=== PATIENT | female | born 1975 | race Caucasian/White ===

== ENCOUNTER 2017-08-18 07:44 | Emergency (ER) | payer OTHER ==
[2017-08-18] MEDS ORDERED: IPRATROPIUM/ALBUTEROL 3 ML NEB INH STA (08:20)
[2017-08-18] MEDS ORDERED: DEXAMETHASONE 10 MG/ML VIAL PO STA (08:20)
--- NOTE | 2017-08-18 08:23 | ED Physician Documentation ---
PD HPI URI - Stated complaint Stated Complaint: CONGESTED/BILAT EAR PX - Chief complaint Chief Complaint: General - History obtained from History obtained from: Patient - History of Present Illness Timing - onset: How many days ago (5) Timing duration: Days (5) Timing details: Gradual onset, Still present Associated symptoms: Ear pain, Nasal congestion, Rhinorrhea, Dry cough, Chest pain, Dyspnea. No: Fever Contributing factors: Sick contact Improves by: Rest, Medication Worsened by: Activity Similar symptoms before: Diagnosis (URI) Recently seen: Not recently seen - Additional information Additional information: 42-year-old female with no specific past medical history has developed a cough and congestion over the past 5 days and she is now developed some shortness of breath and chest pressure. She does feel like she is having some difficulty getting a full deep breath. She has pain and fullness in both ears and nasal congestion. Review of Systems Constitutional: denies: Fever Eyes: denies: Decreased vision Ears: reports: Loss of hearing, Ear pain Nose: reports: Rhinorrhea / runny nose, Congestion Throat: denies: Sore throat Cardiac: reports: Chest pain / pressure. 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 - Present Medications Home Medications: Ambulatory Orders Medication Instructions Recorded Confirmed Albuterol Sulf [Ventolin Hfa 1 - 2 puffs INH Q4HR PRN #1 inhaler 08/18/17 Inhaler] Azithromycin [Zithromax] 250 mg PO DAILY #6 tablet 08/18/17 - Allergies Allergies/Adverse Reactions: Allergies Allergy/AdvReac Type Severity Reaction Status Date / Time sulfamethoxazole Allergy Edema Verified 02/22/15 07:01 [From ] trimethoprim [From ] Allergy Edema Verified 02/22/15 07:01 - Social History Does the pt smoke?: No Smoking Status: Never smoker Does the pt drink ETOH?: No Does the pt have substance abuse?: No - Immunizations Immunizations are current?: Yes PD ED PE NORMAL - Vitals Vital signs reviewed: Yes (Hypertensive mild) - General General: No acute distress, Well developed/nourished - HEENT HEENT: Atraumatic, PERRL, EOMI, Other (Both TMs are inflamed the left is much more inflamed than the right the right has a thickened tympanic membrane.) - Neck Neck: Supple, no meningeal sign, No bony TTP - Cardiac Cardiac: RRR, No murmur - Respiratory Respiratory: No respiratory distress, Other (Diminished breath sounds bilaterally without wheeze) - Back Back: No CVA TTP, No spinal TTP - Derm Derm: Normal color, Warm and dry, No rash - Extremities Extremities: No deformity, No edema - Neuro Neuro: No motor deficit, No sensory deficit - Psych Psych: Normal mood, Normal affect Results - Vitals Vitals: Vital Signs - 24 hr 08/18/17 08/18/17 08/18/17 07:49 08:31 08:58 Temperature 36.4 C L 36.9 C Heart Rate 85 94 84 Respiratory 18 14 18 Rate Blood Pressure 119/83 H 103/62 O2 Saturation 98 100 Oxygen O2 Source Room air - EKG (time done) 0755 Rate: Rate (enter#) (75) Intervals: Other (borderline short NH) Ischemia: ST depression (minimal <.03mV) Compare to prior EKG: Old EKG unavailable Computer interpretation: Agree with computer - Rads (name of study) 2 view chest Radiology: Prelim report reviewed (Impression: Normal two-view chest radiography.), EMP read indepedently, See rad report PD MEDICAL DECISION MAKING - ED course Complexity details: reviewed results, re-evaluated patient, considered differential, d/w patient ED course: 6-year-old female with URI and wheezing has developed some chest pressure with this she is administered a DuoNeb treatment with improvement she is taught how to use an albuterol inhaler she does have otitis on examination. She is given 10 mg of dexamethasone orally and we will put her on some antibiotic and an inhaler. Departure - Departure Disposition: 01 Home, Self Care Clinical Impression: Otitis media Qualifiers: Otitis media type: suppurative Chronicity: acute Laterality: bilateral Recurrence: not specified as recurrent Spontaneous tympanic membrane rupture: without spontaneous rupture Qualified Code(s): H66.003 - Acute suppurative otitis media without spontaneous rupture of ear drum, bilateral Reactive airway disease Qualifiers: Asthma severity: mild Asthma persistence: intermittent Asthma complication type : with acute exacerbation Qualified Code(s): J45.21 - Mild intermittent asthma with (acute) exacerbation Condition: Stable Instructions: ED Otitis Media Acute Adult, ED Reactive Airway Disease Follow-Up: Tiny Catalan MD [Primary Care Provider] - Prescriptions: Albuterol Sulf [Ventolin Hfa Inhaler] 1 - 2 puffs INH Q4HR PRN #1 inhaler PRN Reason: Shortness Of Air/Wheezing Azithromycin [Zithromax] 250 mg PO DAILY #6 tablet
[2017-08-18] MEDS ORDERED: IPRATROPIUM/ALBUTEROL 3 ML NEB INH ONE (08:32)
[2017-08-18] MEDS ORDERED: CHERRY SYRUP 10 ML UDC PO ONE (08:37)
[2017-08-18] MEDS ORDERED: DEXAMETHASONE 10 MG/ML VIAL ONE (08:37)
[2017-08-18 08:59] VITALS: BP 103/62
--- NOTE | 2017-08-18 09:05 | XRAY Preliminary Report ---
Exam: XR CHEST 2 VIEW PA/LAT IMPRESSION: Normal 2-view chest radiography. [facility] SITE ID: [id number]
--- NOTE | 2017-08-18 09:08 | XRAY Report ---
EXAM: CHEST RADIOGRAPHY EXAM DATE: 08/18/2017 08:54 AM. CLINICAL HISTORY: Dyspnea/chest pain. COMPARISON: None. TECHNIQUE: 2 views. FINDINGS: Lungs/Pleura: No focal opacities evident. No pleural effusion. No pneumothorax. Normal volumes. Mediastinum: Heart and mediastinal contours are unremarkable. Other: None. IMPRESSION: Normal 2-view chest radiography. [facility] Referring Provider Line: [phone] SITE ID: [id number]
== END 2017-08-18 09:24 | disposition home or self-care (01) ==
LOC: ED 07:44
DX: H66.003 Acute suppurative otitis media without spontaneous rupture of ear drum, bilateral (principal); J45.21 Mild intermittent asthma with (acute) exacerbation
CPT/HCPCS: 71020; 93005; 94640; 94664; 99283; A9270; J7620

== ENCOUNTER 2018-11-30 07:47 | Emergency (ER) | payer OTHER ==
--- NOTE | 2018-11-30 07:57 | ED Physician Documentation ---
PD HPI URI - Stated complaint Stated Complaint: FEVER/CHILLS - History obtained from History obtained from: Patient - History of Present Illness Timing - onset: Yesterday Timing duration: Days (2) Timing details: Abrupt onset, Still present Associated symptoms: Fever, Chills, Ear pain, Nasal congestion, Sinus pain, Dry cough Contributing factors: No: Sick contact, COPD / asthma Improves by: Medication (theraflu) Similar symptoms before: Has not had sx before Recently seen: Not recently seen (tried to get into [facility] but they referred her to the ER.) Review of Systems Constitutional: reports: Fever, Chills, Myalgias Ears: reports: Ear pain. denies: Loss of hearing, Drainage/discharge Nose: reports: Congestion, Sinus pressure / pain Throat: denies: Sore throat Cardiac: denies: Chest pain / pressure Respiratory: reports: Cough. 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 - Present Medications Home Medications: Ambulatory Orders Medication Instructions Recorded Confirmed Cetirizine [ZyrTEC] 10 mg PO DAILY #15 tablet 11/30/18 Dexamethasone [Decadron] 4 mg PO DAILY #5 tablet 11/30/18 - Allergies Allergies/Adverse Reactions: Allergies Allergy/AdvReac Type Severity Reaction Status Date / Time sulfamethoxazole Allergy Edema Verified 11/30/18 07:58 [From ] trimethoprim [From ] Allergy Edema Verified 11/30/18 07:58 - Social History Does the pt smoke?: No Smoking Status: Never smoker Does the pt drink ETOH?: No Does the pt have substance abuse?: No - Immunizations Immunizations are current?: Yes PD ED PE NORMAL - Vitals Vital signs reviewed: Yes - General General: Alert and oriented X 3, No acute distress, Well developed/nourished - HEENT HEENT: Ears normal, Pharynx benign - Neck Neck: Supple, no meningeal sign, No adenopathy - Cardiac Cardiac: RRR (mild tachycardic), No murmur - Respiratory Respiratory: Clear bilaterally - Abdomen Abdomen: Soft, Non tender - Derm Derm: Normal color, Warm and dry, No rash - Neuro Neuro: Alert and oriented X 3, No motor deficit, Normal speech Results - Vitals Vitals: Vital Signs - 24 hr 11/30/18 07:51 Temperature 36.6 C Heart Rate 112 H Respiratory 20 Rate Blood Pressure 115/89 H O2 Saturation 94 Oxygen O2 Source Room air Departure - Departure Disposition: 01 Home, Self Care Clinical Impression: Upper respiratory infection Qualifiers: URI type: unspecified URI Qualified Code(s): J06.9 - Acute upper respiratory infection, unspecified Condition: Stable Record reviewed to determine appropriate education?: Yes Instructions: ED Upper Resp Infec No Abx Tx Follow-Up: Tiny Catalan MD [Primary Care Provider] - Prescriptions: Cetirizine [ZyrTEC] 10 mg PO DAILY #15 tablet Dexamethasone [Decadron] 4 mg PO DAILY #5 tablet Comments: Drink lots of fluids. [id number] medicines as needed for fevers and cough and congestion. You could use a antihistamine for congestion. You may get some improvement in symptoms with some anti-inflammatories as well. Otherwise just rest today and slowly get better over the next several days to week. Forms: Activity restrictions Discharge Date/Time: 11/30/18 08:23
[2018-11-30 07:58] VITALS: BP 115/89
[2018-11-30] MEDS ORDERED: DEXAMETHASONE 10 MG/ML VIAL PO STA (08:05)
[2018-11-30] MEDS ORDERED: CETIRIZINE 10 MG TABLET PO STA (08:05)
[2018-11-30] MEDS ORDERED: CHERRY SYRUP 10 ML UDC PO ONE (08:17)
== END 2018-11-30 08:23 | disposition home or self-care (01) ==
LOC: ED 07:47
DX: J06.9 Acute upper respiratory infection, unspecified (principal)
CPT/HCPCS: 99283; A9270

== ENCOUNTER 2021-03-24 13:36 | Outpatient (CLI) | payer OTHER ==
--- NOTE | 2021-03-25 12:19 | Mammography Report ---
BILATERAL DIGITAL SCREENING MAMMOGRAM 3D/2D: 03/24/2021 CLINICAL: Routine screening. Comparison is made to exams dated: 03/30/2019 mammogram, 02/02/2018 mammogram, 03/18/2015 mammogram, an d 03/01/2015 ultrasound - [facility]. There are scattered fibroglandular elements in both br easts. No significant masses, calcifications, or other findings are seen in either breast. There has been no significant interval change. IMPRESSION: NEGATIVE There is no mammographic evidence of malignancy. A 1 year screening mammogram is recommended. This exam was interpreted at Station ID: [id number]. NOTE: For mammograms, a report in lay terms will be sent to the patient. Approximately 15% of breast malignancies will not be visualized mammographically. In the management of a palpable breast mass, a negative mammogram must not discourage biopsy of a clinically suspicious lesion. Electronically Signed By: Juan C Clifton M.D. ddp/penrad:03/24/2021 15:01:33 ACR BI-RADS Category 1: Negative 3341F PARENCHYMAL PATTERN: (A) - The breast(s) demonstrate(s) scattered fibroglandular densities. BI-RADS CATEGORY: (1) - 1 RECOMMENDATION: (ANNUAL) - Recommend routine annual screening mammography. [id number] 1 year screening LATERALITY: (B)
== END 2021-03-24 13:37 | disposition home or self-care (01) ==
LOC: DI 13:36
DX: Z12.31 Encounter for screening mammogram for malignant neoplasm of breast (principal)

== ENCOUNTER 2021-05-30 06:20 | Emergency (ER) | payer OTHER ==
[2021-05-30 06:52] LABS: BILIRUBIN,URINE NEGATIVE (NEGATIVE); GLUCOSE, URINE (UA) NEGATIVE (NEGATIVE); KETONES,URINE (UA) NEGATIVE (NEGATIVE); LEUKOCYTE ESTERASE, URINE NEGATIVE (NEGATIVE); NITRITE,URINE NEGATIVE (NEGATIVE); OCCULT BLOOD,URINE TRACE-INTA (NEGATIVE); PROTEIN,URINE NEGATIVE (NEGATIVE); UROBILINOGEN,URINE 0.2 (NORMAL) E.U./dL (NORMAL)
[2021-05-30 06:59] LABS: CLARITY,URINE CLEAR (CLEAR)
[2021-05-30 07:00] LABS: HCG UR QUAL NEGATIVE
[2021-05-30 07:18] LABS: BASOPHILS % (AUTO) 0.5 %; EOSINOPHILS % (AUTO) 0.6 %; HCT - HEMATOCRIT 36.9 % (37.0-47.0); HGB - HEMOGLOBIN 11.8 g/dL (12.0-16.0); LYMPHOCYTES # (AUTO) 1.5 10^3/uL (1.5-3.5); LYMPHOCYTES % (AUTO) 23.5 %; MEAN CORPUSCULAR HEMOGLOBIN 29.8 pg (27.0-31.0); MEAN CORPUSCULAR VOLUME 93.2 fL (81.0-99.0); MEAN PLATELET VOLUME 10.2 fL (7.9-10.8); MONOCYTES # (AUTO) 0.3 10^3/uL (0.0-1.0); MONOCYTES % (AUTO) 5.3 %; NEUTROPHILS # (AUTO) 4.5 10^3/uL (1.5-6.6); NEUTROPHILS % (AUTO) 69.8 %; PLT - PLATELET COUNT 311 10^3/uL (130-450); RED BLOOD COUNT 3.96 10^6/uL (4.20-5.40); WHITE BLOOD COUNT 6.4 x10^3/uL (4.8-10.8)
[2021-05-30 07:32] LABS: ALBUMIN/GLOBULIN RATIO 1.3 (1.0-2.2); BILIRUBIN,TOTAL 0.5 mg/dL (0.2-1.0); CALCIUM 9.1 mg/dL (8.5-10.3); CREATININE 0.8 mg/dL (0.4-1.0); POTASSIUM 3.8 mmol/L (3.5-5.0); TOTAL PROTEIN 7.2 g/dL (6.7-8.2)
--- NOTE | 2021-05-30 07:41 | ED Physician Documentation ---
PD HPI ABD PAIN - Stated complaint Stated Complaint: RT SIDE PX - Chief complaint Chief Complaint: Abd Pain - History obtained from History obtained from: Patient - History of Present Illness Timing - onset: Last night Timing - duration: Days (1) Timing - details: Gradual onset Pain level max: 9 Pain level now: 3 Quality: Sharp, Stabbing Location: RLQ (Right pelvic area) Associated symptoms: No: Fever, Constipation, Melena, Hematochezia, Dysuria, Hematuria, Vaginal bleeding, Vaginal dc Similar symptoms before: Has not had sx before Recently seen: Not recently seen - Additional information Additional information: Patient is a 46-year-old female who presents to the emergency department with right pelvic pain since last night. LMP was 6 days ago. Pain was described as sharp and stabbing, improved currently. No nausea or vomiting. One episode of diarrhea yesterday. No fevers. No chills. Nothing makes it better or worse. 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 - Present Medications Home Medications: Ambulatory Orders Medication Instructions Recorded Confirmed Ibuprofen [Motrin] 800 mg PO Q8H PRN #30 tablet 05/30/21 - Allergies Allergies/Adverse Reactions: Allergies Allergy/AdvReac Type Severity Reaction Status Date / Time sulfamethoxazole Allergy Edema Verified 05/30/21 06:30 [From ] trimethoprim [From ] Allergy Edema Verified 05/30/21 06:30 - Social History Does the pt smoke?: No Smoking Status: Never smoker Does the pt drink ETOH?: No Does the pt have substance abuse?: No - Immunizations Immunizations are current?: Yes - POLST Patient has POLST: No PD ED PE NORMAL - Vitals Vital signs reviewed: Yes - General General: Alert and oriented X 3, No acute distress - HEENT HEENT: Moist mucous membranes - Neck Neck: Supple, no meningeal sign - Cardiac Cardiac: RRR, Strong equal pulses - Respiratory Respiratory: No respiratory distress, Clear bilaterally - Abdomen Abdomen: Soft, Non tender, Non distended - Derm Derm: Warm and dry - Neuro Neuro: Alert and oriented X 3 - Psych Psych: Normal mood, Normal affect Results - Vitals Vitals: Vital Signs - 24 hr 05/30/21 05/30/21 06:28 10:46 Temperature 37.2 C 36.3 C L Heart Rate 79 76 Respiratory 16 16 Rate Blood Pressure 132/75 H 129/88 H O2 Saturation 97 98 Oxygen O2 Source Room air - Labs Labs: Laboratory Tests 05/30/21 05/30/21 05/30/21 06:45 06:45 07:05 WBC 6.4 RBC 3.96 L Hgb 11.8 L Hct 36.9 L MCV 93.2 MCH 29.8 MCHC 32.0 RDW 12.0 Plt Count 311 MPV 10.2 Neut # (Auto) 4.5 Lymph # (Auto) 1.5 [place] # (Auto) 0.3 Eos # (Auto) 0.0 Baso # (Auto) 0.0 Absolute Nucleated RBC 0.00 Nucleated RBC % 0.0 Sodium Potassium Chloride Carbon Dioxide Anion Gap BUN Creatinine Estimated GFR (MDRD) Glucose Calcium Total Bilirubin AST ALT Alkaline Phosphatase Total Protein Albumin Globulin Albumin/Globulin Ratio Lipase Urine Color YELLOW Urine Clarity CLEAR Urine pH 6.0 Ur Specific [place] 1.025 Urine Protein NEGATIVE Urine Glucose (UA) NEGATIVE Urine Ketones NEGATIVE Urine Occult Blood TRACE-INTA Urine Nitrite NEGATIVE Urine Bilirubin NEGATIVE Urine Urobilinogen 0.2 (NORMAL) Ur Leukocyte Esterase NEGATIVE Ur Microscopic Review NOT INDICATED Urine Culture Comments NOT INDICATED Urine HCG, Qual NEGATIVE 05/30/21 07:05 WBC RBC Hgb Hct MCV MCH MCHC RDW Plt Count MPV Neut # (Auto) Lymph # (Auto) [place] # (Auto) Eos # (Auto) Baso # (Auto) Absolute Nucleated RBC Nucleated RBC % Sodium 137 Potassium 3.8 Chloride 104 Carbon Dioxide 22 Anion Gap 11.0 BUN 19 Creatinine 0.8 Estimated GFR (MDRD) 78 L Glucose 121 H Calcium 9.1 Total Bilirubin 0.5 AST 19 ALT 19 Alkaline Phosphatase 60 Total Protein 7.2 Albumin 4.0 Globulin 3.2 Albumin/Globulin Ratio 1.3 Lipase 36 Urine Color Urine Clarity Urine pH Ur Specific [place] Urine Protein Urine Glucose (UA) Urine Ketones Urine Occult Blood Urine Nitrite Urine Bilirubin Urine Urobilinogen Ur Leukocyte Esterase Ur Microscopic Review Urine Culture Comments Urine HCG, Qual - Rads (name of study) Abdomen/pelvis CT Radiology: Final report received, EMP read contemporaneously, See rad report pelvic US Radiology: Final report received, EMP read contemporaneously, See rad report PD MEDICAL DECISION MAKING - ED course Complexity details: reviewed results, re-evaluated patient, considered differential, d/w patient ED course: 46-year-old female with abdominal pain last night and today. No acute findings on CT scan, ultrasound or laboratory testing. Normal urine. No vaginal bleeding or discharge. Pain well controlled here. Abdomen is soft, nontender nondistended on serial exam. Does have a solid mass in the left adnexa, she will follow up with her doctor for a pelvic MRI. Patient counseled regarding signs and symptoms for which I believe and urgent re-evaluation would be necessary. Patient with good understanding of and agreement to plan and is comfortable going home at this time This document was made in part using voice recognition software. While efforts are made to proofread this document, sound alike and grammatical errors may occur. Pelvic US: 1. No signs of ovarian torsion. No acute abnormality is seen in the pelvis. 2. Solid mass in the left adnexa measuring 1.8 cm may represent a pedunculated uterine fibroid versus a left ovarian mass. Pelvic MRI with and without contrast could be obtained for further evaluation. Abdominal CT: 1. No acute process. 2. Normal appendix. Departure - Departure Disposition: 01 Home, Self Care Clinical Impression: Abdominal pain Qualifiers: Abdominal location: unspecified location Qualified Code(s): R10.9 - Unspecified abdominal pain Condition: Good Instructions: ED Abdominal Pain Unkn Cause Follow-Up: your,doctor in 1 week [Other] Prescriptions: Ibuprofen [Motrin] 800 mg PO Q8H PRN #30 tablet PRN Reason: PAIN &/OR FEVER Comments: The cause of your symptoms is unclear today. There are no acute findings on your laboratory testing or ultrasound or CT to explain your symptoms. There is an abnormality in your left ovary. They are recommending that you have a pelvic MRI performed. Your doctor can arrange this. You can use Motrin as needed for pain. Return if you worsen. Pelvic US: 1. No signs of ovarian torsion. No acute abnormality is seen in the pelvis. 2. Solid mass in the left adnexa measuring 1.8 cm may represent a pedunculated uterine fibroid versus a left ovarian mass. Pelvic MRI with and without contrast could be obtained for further evaluation. Abdominal CT: 1. No acute process. 2. Normal appendix. Discharge Date/Time: 05/30/21 11:00
[2021-05-30] MEDS ORDERED: IOVERSOL 320 100 ML VIAL IVP ONE ×2 (09:38→09:55)
--- NOTE | 2021-05-30 09:46 | Ultrasound Report ---
PROCEDURE: Pelvic w/Transvag+Doppler Comp INDICATIONS: pelvic pain, R TECHNIQUE: Real-time scanning was performed of the pelvic organs, with image documentation. Additional endovagi nal scanning was necessary due to incomplete visualization of the adnexal and endometrial structures by transabdominal scanning. COMPARISON: None. FINDINGS: No pathologic free abdominal or pelvic fluid. Uterus: Uterus is slightly enlarged, measuring 11 x 2.7 x 4.5 cm The endometrium measures 8 mm in co mbined thickness. A solid lesion is seen at the left adnexa superior to the ovary measuring 1.8 x 1.8 x 1.7 cm. Ovaries: The right ovary measures 2.9 x 1.4 x 1.5 cm (3 mL). The left ovary measures 4.5 x 1.6 x 2.1 cm (8 mL). Symmetric blood flow seen to the ovaries. IMPRESSION: 1. No signs of ovarian torsion. No acute abnormality is seen in the pelvis. 2. Solid mass in the left adnexa measuring 1.8 cm may represent a pedunculated uterine fibroid versu s a left ovarian mass. Pelvic MRI with and without contrast could be obtained for further evaluation. Findings were conveyed to Dr. Baez by the gasoline truck crane operator on 05/30/2021 at 9:15 AM (Story time). Reviewed by: Mathieu Mcallister MD on 05/30/2021 8:44 AM [facility] Approved by: Mathieu cMallister MD on 05/30/2021 8:44 AM [facility] Station ID: [id number]
[2021-05-30] MEDS ORDERED: KETOROLAC 30 MG/ML VIAL IVP STA (09:47)
--- NOTE | 2021-05-30 10:10 | CT Report ---
PROCEDURE: Abdomen/Pelvis W INDICATIONS: RLQ abd pain CONTRAST: IV CONTRAST: Optiray 320 ml: 100 PO CONTRAST: *NO PO CONTRAST TECHNIQUE: After the administration of IV contrast, 5 mm thick sections acquired from the diaphragms to the symp hysis. 5 mm thick coronal and sagittal reformats were acquired. For radiation dose reduction, the f ollowing was used: automated exposure control, adjustment of mA and/or kV according to patient size. COMPARISON: None. FINDINGS: Image quality: Excellent. ABDOMEN: Lung bases: Lung bases are clear. Heart size is normal. Solid organs: Liver and spleen are normal in size and enhancement. Gallbladder is grossly unremarka ble Biliary system is non dilated. Pancreas enhances normally. No adrenal nodules. Kidneys demons trate normal size and enhancement, without hydronephrosis. Peritoneum and bowel: Bowel loops demonstrate normal wall thickness and caliber. Normal appendix. N o free fluid or air. Nodes and vessels: No retroperitoneal or mesenteric adenopathy by size criteria. Aorta and inferior vena cava are normal in size. Miscellaneous: No ventral hernias. PELVIS: Genitourinary: Bladder wall thickness is normal. Miscellaneous: No inguinal hernias or adenopathy. Bones: No suspicious bony lesions. No vertebral body compression fractures. IMPRESSION: 1. No acute process. 2. Normal appendix. Reviewed by: James Giordano MD on 05/30/2021 10:08 AM PDT Approved by: James Giordano MD on 05/30/2021 10:08 AM PDT Station ID: [id number]
[2021-05-30 10:46] VITALS: BP 129/88
== END 2021-05-30 11:00 | disposition home or self-care (01) ==
LOC: ED 06:20
DX: R10.31 Right lower quadrant pain (principal); R10.2 Pelvic and perineal pain; N83.8 Other noninflammatory disorders of ovary, fallopian tube and broad ligament
CPT/HCPCS: 36415; 74177; 76830; 76856; 80053; 81003; 81025; 83690; 85025; 93975; 96374; 99284; Q9967; 81001; 87086

== ENCOUNTER 2021-06-30 07:10 | Outpatient (CLI) | payer OTHER ==
[2021-06-30] MEDS ORDERED: GADOBUTROL 15 MMOL/15 ML VIAL ONE (07:16)
--- NOTE | 2021-06-30 12:33 | MRI Report ---
PROCEDURE: Pelvis W/WO INDICATIONS: Left sided potentially solid or cystic mass seen at or just above cthe left ovary on ul trasound scanning 05/30/[address] but [address] seen by CT scanning same day. CONTRAST: IV CONTRAST: Gadavist ml: 7.2 TECHNIQUE: Coronal ultra fast SE, sagittal breath-hold T2 FSE; axial T1 FSE with and without fat saturation thro ugh the pelvis. Optional long- and short-axis uterine nonbreath-hold T2 FSE through the uterus. Sag ittal or axial dynamic ultra fast GE during administration of contrast. Post-contrast axial or coron al ultra fast GE / 2-D spoiled GE with fat saturation from the iliac crests to the symphysis. Option al diffusion weighted imaging and ADC may be performed. COMPARISON: Prior CT abdomen/pelvis 05/30/2021 and also prior pelvic ultrasound same day.. FINDINGS: Image quality: Excellent. Uterus: Uterus is normal in size. Endometrium is normal in thickness. Junctional zone is normal in thickness at 12 mm or less. Adnexa: Both ovaries are normal in size, without suspicious cystic or solid lesions. There are oneyda ral small cysts at the left ovary the largest measuring 1.3 cm in maximal dimension. Urinary system: Bladder wall is normal in thickness. Distal ureters are non distended. Urethra michelle ears normal in morphology. Nodes and vessels: No pelvic or inguinal adenopathy by size criteria. Iliac vessels are normal in s ize. Bowel and peritoneum: No pathologic free pelvic fluid. Inferior colon and small bowel loops are nor mal in caliber. Soft tissues: No inguinal hernias. No findings of pelvic floor incompetence in the absence of provo cation. Bones: Marrow demonstrates normal overall signal. IMPRESSION: The uterus and right ovary appear normal. Several small cysts are present at the left ov emely, laterality of current concern from prior ultrasound. There is a finding of several subcentimeter cysts at this ovary and a 1.3 cm cyst at the upper margin of the left ovary. A solid mass lesion is not seen. Recommend follow-up pelvic ultrasound in 6-8 weeks to further assess the left ovary and confirm absen ce of suspicious lesion in the area of prior ultrasound concern. Reviewed by: Gregory Rojas MD on 06/30/2021 12:31 PM PDT Approved by: Gregory Rojas MD on 06/30/2021 12:31 PM PDT Station ID: [id number]
== END 2021-06-30 07:11 | disposition home or self-care (01) ==
LOC: DI 07:10
DX: N83.202 Unspecified ovarian cyst, left side (principal)
CPT/HCPCS: 72197; A9585

== ENCOUNTER 2021-11-16 12:39 | Emergency (ER) | payer OTHER ==
[2021-11-16 12:46] VITALS: BP 129/91
--- NOTE | 2021-11-16 13:10 | ED Physician Documentation ---
History of Present Illness - Stated complaint Stated Complaint: RIGHT EAR PX - Chief complaint Chief Complaint: Heent - History obtained from History obtained from: Patient - History of Present Illness Timing: Today Pain level max: 0 Pain level now: 0 - Additonal information Additional information: 46-year-old female presents to the emergency department with right ear pain that started today. History of recurrent ear infections. Has had a perforated right eardrum in the past. No fevers. No chills. No rhinorrhea or congestion. No sore throat. Worse with palpation of the ear and ear canal. No swelling. No erythema. 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 - Present Medications Home Medications: Ambulatory Orders Medication Instructions Recorded Confirmed Ciproflox/Dexameth Otic Drops 4 drops OT BID 7 Days #1 bottle 11/16/21 [Ciprodex] - Allergies Allergies/Adverse Reactions: Allergies Allergy/AdvReac Type Severity Reaction Status Date / Time sulfamethoxazole Allergy Edema Verified 11/16/21 12:44 [From ] trimethoprim [From ] Allergy Edema Verified 11/16/21 12:44 - Social History Does the pt smoke?: No Smoking Status: Never smoker Does the pt drink ETOH?: No Does the pt have substance abuse?: No - Immunizations Immunizations are current?: Yes - POLST Patient has POLST: No PD ED PE NORMAL - Vitals Vital signs reviewed: Yes - General General: Alert and oriented X 3, No acute distress - HEENT HEENT: Moist mucous membranes, Other (Left and right TM are normal. The left ear canal is normal. The right ear canal is erythematous and swollen. No drainage. The pinna is normal of the right ear as well.) - Neck Neck: Supple, no meningeal sign, No JVD, No bruit - Cardiac Cardiac: RRR - Respiratory Respiratory: No respiratory distress, Clear bilaterally - Derm Derm: Warm and dry - Neuro Neuro: Alert and oriented X 3 Results - Vitals Vitals: Vital Signs - 24 hr 11/16/21 12:45 Temperature 36.8 C Heart Rate 99 Respiratory 19 Rate Blood Pressure 129/91 H O2 Saturation 100 Oxygen O2 Source Room air PD MEDICAL DECISION MAKING - ED course Complexity details: considered differential, d/w patient ED course: Patient with what appears to be a right acute otitis externa. Will place on Ciprodex otic. We will have her follow-up with her doctor for further care. Patient counseled regarding signs and symptoms for which I believe and urgent re-evaluation would be necessary. Patient with good understanding of and agreement to plan and is comfortable going home at this time This document was made in part using voice recognition software. While efforts are made to proofread this document, sound alike and grammatical errors may occur. Departure - Departure Disposition: 01 Home, Self Care Clinical Impression: Right otitis externa Qualifiers: Otitis externa type: unspecified type Chronicity: acute Qualified Code(s): H60.501 - Unspecified acute noninfective otitis externa, right ear Condition: Good Instructions: ED Otitis Externa Follow-Up: KELLEY TEMPLE MD [Primary Care Provider] - Within 1 week Prescriptions: Ciproflox/Dexameth Otic Drops [Ciprodex] 4 drops OT BID 7 Days #1 bottle Comments: Prescription was sent to [facility] in [place]. Please follow-up with your doctor for further care. Should improve with the eardrops. Discharge Date/Time: 11/16/21 13:18
== END 2021-11-16 13:18 | disposition home or self-care (01) ==
LOC: ED 12:39
DX: H60.501 Unspecified acute noninfective otitis externa, right ear (principal)
CPT/HCPCS: 99282

== ENCOUNTER 2022-02-14 13:14 | Emergency (ER) | payer OTHER ==
[2022-02-14 13:20] VITALS: BP 117/87
--- NOTE | 2022-02-14 14:06 | ED Physician Documentation ---
History of Present Illness - Stated complaint Stated Complaint: LT EAR PX - Chief complaint Chief Complaint: Heent - Additonal information Additional information: 46-year-old female presents emergency department for evaluation of 1 week muff led hearing in her left ear. She reports that about 2 weeks ago she was diagnosed with otitis externa and completed ofloxacin drops however she continues to have muffled hearing. In addition she recently traveled to [place] by a car and felt that traveling through the [place] made the hearing worse. She does have minimal pain. No drainage or fevers. No cough and congestion. She takes Claritin and Flonase daily. Reports a longstanding history of barotrauma, TM perforation and seasonal allergies Review of Systems Constitutional: reports: Reviewed and negative Eyes: reports: Reviewed and negative Ears: reports: Other (muffled hearing). 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 - Present Medications Home Medications: Ambulatory Orders Medication Instructions Recorded Confirmed Ciprofloxacin HCl/Dexameth 7.5 ml LEFTEAR BID 7 Days #7.5 ml 02/14/22 [Ciprodex Otic Suspension] Fluticasone [Flonase] 1 sprays BEBA DAILY 02/14/22 02/14/22 Loratadine [Claritin] 10 mg PO DAILY 02/14/22 02/14/22 - Allergies Allergies/Adverse Reactions: Allergies Allergy/AdvReac Type Severity Reaction Status Date / Time sulfamethoxazole Allergy Edema Verified 02/14/22 13:18 [From ] trimethoprim [From ] Allergy Edema Verified 02/14/22 13:18 - Social History Does the pt smoke?: No Smoking Status: Never smoker Does the pt drink ETOH?: No Does the pt have substance abuse?: No - Immunizations Immunizations are current?: Yes - POLST Patient has POLST: No PD ED PE EXPANDED - General General: Alert, No acute distress, Well developed/nourished - HEENT HEENT: Other (Mild erythema and swelling of the left EAC without drainage. TM is pearly brand and intact without effusion.) Results - Vitals Vitals: Vital Signs - 24 hr 02/14/22 13:18 Temperature 36.5 C Heart Rate 86 Respiratory 16 Rate Blood Pressure 117/87 H O2 Saturation 97 Oxygen O2 Source Room air PD MEDICAL DECISION MAKING - ED course Complexity details: d/w patient ED course: 46-yearOld female presents to the emergency department for evaluation of muffled hearing in the left ear that has been ongoing since she was diagnosed with otitis externa recently. She completed her ofloxacin drops 5 days ago. She also recently traveled to [place]. On ear exam she continues to have some erythema and mild swelling of the ear canal. Given this an appropriate duration since cessation of antibiotic drops will put her on Ciprodex. I suspect she Eustachian tube dysfunction. Discussed the use of saline nasal sprays Flonase and Benadryl. Emergent worrisome return precautions discussed for infections. Departure - Departure Disposition: 01 Home, Self Care Clinical Impression: Left otitis externa Qualifiers: Otitis externa type: unspecified type Chronicity: acute Qualified Code(s): H60.502 - Unspecified acute noninfective otitis externa, left ear Eustachian tube disorder Qualifiers: Laterality: left Qualified Code(s): H69.92 - Unspecified Eustachian tube disorder, left ear Condition: Stable Record reviewed to determine appropriate education?: Yes Instructions: ED Obstruction Eustachian Tube Ch Prescriptions: Ciprofloxacin HCl/Dexameth [Ciprodex Otic Suspension] 7.5 ml LEFTEAR BID 7 Days #7.5 ml Comments: Katie you are seen today in the emergency department for muffled hearing in your left ear. You do have an infection in the external ear canal but the eardrum itself looks good without any fluid behind it. As we discussed at the bedside I do suspect that you have some eustachian tube dysfunction. I recommend the use saline nasal rinses in the shower followed by Flonase to help unblock the eustachian tube. Taking a dose of Benadryl at night will also help with decongestion and should help open the tube up. If at any point you find you are having worsening symptoms and please return immediately to the ER. I have sent a prescription for the antibiotic drops to the [facility] in [place]. Please take as directed
== END 2022-02-14 14:12 | disposition home or self-care (01) ==
LOC: ED 13:14
DX: H60.502 Unspecified acute noninfective otitis externa, left ear (principal); H69.92 Unspecified Eustachian tube disorder, left ear
CPT/HCPCS: 99282

== ENCOUNTER 2023-02-08 14:12 | Outpatient (CLI) | payer OTHER ==
--- NOTE | 2023-02-08 16:57 | SLEEP CARE CONSULTATION ---
Information from patient questionnaire entered by Lashell Brennan. I have reviewed and concur with the information entered by Lashell Brennan. This document represents the service I personally performed and the decisions made by me, Justyn Castillo MD, [facility]. History of Present Illness Service Date and Time: 02/08/2023 1412 Chief Complaint: reports: Unrefreshed sleep, Snoring, Fatigue, Frequent awakenings at night Date of Onset: 1YR Usual bedtime: 830PM Time it takes to fall asleep: 15MIN Snores at night: Yes Observed to quit breathing while asleep: No Number of times waking at night: 1, A FEW TIMES A WEEK Reasons for waking at night: reports: Snoring, Bathroom, Other (NOISE, UNKNOWN) Toss, Turn, or Twitch while sleeping: No Recalls having dreams: Yes Usually gets out of bed at: 5AM Feels refreshed in the morning: No Morning headache: No Sleepy or fatigued during the day: Yes Ever fallen asleep while driving: No Takes day naps: No Dreams during day naps: No Prior sleep studies: No Additional HPI information: I have the pleasure of seeing Ms. Chavarria today regarding the possibility of her having obstructive sleep apnea. As you know, she is a 47-year-old lady who complains of fatigue and waking up from her own snore. The patient tells me that she normally goes to bed around 8:30 pm, and it takes her approximately 15 minutes to fall asleep. She has been told that she snores loudly and irregularly at night. She has never been observed to stop breathing in her sleep. However, she sleeps alone. She can recall waking up on the average of 0 - 1 time during the night. Most of the time she wakes up because of her own snoring, but not choking, or having to gasp for air. There is not a lot of tossing and turning in her sleep. No somniloquy (sleep talking) or somnambulism (sleep walking). Generally, she can recall having dreams. In the morning she usually gets up out of the bed around 5 a.m. not feeling refreshed nor rested. She usually does not have a morning headache. During the day she complains of feeling does not feel sleepy an fatigued. Her score on [place] Sleepiness Scale is 1 out of 24. She never has fallen asleep while driving nor has had any accident due to sleepiness. She usually does not take naps during the day. Upon falling asleep during the day she denies having vivid dreams. She has never had sleep paralysis, experienced cataplexy or symptoms of restless leg syndrome. She denies having impaired concentration during the day. 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 Patient is and lives in . Have you smoked in the past 12 months: No Years of smokin Quit date: 2013 Alcohol use: Yes Alcohol amount and frequency: 2DRINKS WEEKENDS TWICE A MONTH Caffeine use: Yes Caffeine amount and frequency: 1 CUP COFFEE DAILY Family History Family history of sleep disordered breathing: Yes Family Hx Sleep Apnea: Mother: Snoring Allergies and Home Medications Known drug allergies: Yes () Drug allergies reviewed: Yes Home medication list reviewed: Yes Allergy and home medication list: Allergies sulfamethoxazole [From ] Allergy (Verified 02/05/23 15:45) Edema trimethoprim [From ] Allergy (Verified 02/05/23 15:45) Edema Review of Systems Weight gain over past 5 years: 30 Cardiovascular: reports: chest pain, irregular heart rate or pulse, leg or foot swelling Gastrointestinal: reports: heartburn Urinary: denies: incontinence, frequency, urgency, impotence, other Neurological: denies: headaches, seizure, head trauma, disorientation, speech dysfunction, gait or balance problems, fainting or unconsciousness, other Psychiatric: denies: Attention Deficit Hyperactivity, anxiety, depression, mood disorder, claustrophobia, other Ear/Nose/Throat: reports: nasal congestion, sinus problems Endocrine: denies: thyroid disease, history of goiter, sluggishness, too hot or cold, excessive thirst, increased appetite, increased urination, unexplained weakness, other Musculoskeletal: reports: joint pain Immunologic: denies: sneezing, rash, itching, allergies to food or environment, other Physical Exam Vital signs obtained and entered by: LASHELL Harrison MA Blood Pressure: 124/72 (LEFT ARM) Cuff size: regular Heart Rate: 97 O2 Saturation: 97 Height: 5 ft Weight: 197 lb 12.8 oz Body Mass Index: 38.6 BMI Classification: Obese Mood/affect: normal HEENT: No craniofacial malformation Nostrils: patent to airflow Turbinates: normal Septum: midline Mouth and throat: narrow oropharynx Soft palate: long Hard palate: normal Uvula: normal Uvula visualization: 25% Mallampati Class III Tongue: normal in size Tonsils: small Chin and jaw: normal size and position Neck: normal w/o lymphadenopathy or thyromegaly Heart: regular rate and rhythm Lungs: clear bilaterally Extremities: no edema or clubbing Neurologic: intact Impression and Plan IMPRESSION: 1. Obstructive Sleep Apnea-Hypopnea Syndrome, as evident by history of loud snoring, unrefreshed sleep, and persistent fatigue. Narrow oropharynx and obesity are common predisposing factors for obstructive sleep apnea-hypopnea syndrome. I recommend proceeding to polysomnography to confirm the diagnosis and to assess severity. If she has significant sleep disordered breathing, a manual CPAP titration study will also be performed to find the optimal treatment pressure. I informed the patient of what the sleep studies involve and after some discussion, she agreed to proceed. Plan: 1. Schedule polysomnography and return in 1 to 2 weeks after the study to discuss result and initiate therapy. 2. Avoid long distance driving or when feeling sleepy. 3. Avoid alcohol, sedative and muscle relaxant around bedtime. 4. Attempt to lose weight. Follow up with Sleep Care in: 1-2 months Visit Type: In Office Time Spent with Patient (minutes): 15 Provider Statement: I spent 100% of the Face to Face Visit with the patient with greater than 50% spent counseling the patient and coordination of care.
[2023-02-08 16:58] VITALS: BP 124/72
== END 2023-02-08 14:13 | disposition home or self-care (01) ==
LOC: SC 14:12
PROVIDERS: ATTEND Internal Medicine Pulmonary Disease
DX: R06.83 Snoring (principal); G47.8 Other sleep disorders; R53.83 Other fatigue; E66.9 Obesity, unspecified; Z68.38 Body mass index [BMI] 38.0-38.9, adult; Z87.891 Personal history of nicotine dependence
CPT/HCPCS: 99202; 99212

== ENCOUNTER 2023-03-12 19:28 | Outpatient (CLI) | payer OTHER | END 2023-03-12 19:29 | disposition home or self-care (01) | LOC: SC 19:28 | PROVIDERS: ATTEND Nurse Practitioner Family | DX: R06.83 Snoring (principal); R53.83 Other fatigue; G47.8 Other sleep disorders; E66.9 Obesity, unspecified; Z68.38 Body mass index [BMI] 38.0-38.9, adult | CPT/HCPCS: 95810 ==

== ENCOUNTER 2023-04-02 13:03 | Outpatient (CLI) | payer OTHER ==
--- NOTE | 2023-04-02 13:21 | Sleep Patient Instructions ---
Sleep Center Visit Summary - Patient Visit Information Reason for Visit: Sleep study follow up - Patient Instructions Additional Instructions: Your sleep study today was negative for significant sleep disordered breathing. You were found to have episodes of snoring. There are different ways to control snoring including weight loss, oral devices made by a dentist or surgical options through ENT specialist. You should not use oral devices that do not fit properly because they can affect your bite. You should also check insurance coverage of oral devices for snoring because they may not be cover well. You may obtain a referral to an ENT specialist through your primary provider Follow-up as needed. - Clinic Information Contact: [facility] [address] [place] [id number] [email or web address] T: [phone]
--- NOTE | 2023-04-02 13:24 | SLEEP CARE CONSULTATION ---
Information from patient questionnaire entered by Jennifer Brennan. I have reviewed and concur with the information entered by Jennifer Brennan. This document represents the service I personally performed and the decisions made by , Valerie Barnett ARNP. History of Present Illness Service Date and Time: 04/02/2023 1303 Initial [place] Sleepiness Scale score: 1 (02/01/23) Current [place] Sleepiness Scale score: 2 (04/02/23) Additional HPI information: BERNY JENSEN returns for follow up and results of the recently performed polysomnography. The patient was informed of the following findings: No significant sleep disordered breathing with an average AHI of 0.6 and kristin oxygen saturation of 92%. I explained the pathophysiology behind obstructive sleep apnea. Patient does not have sleep apnea and was advised how weight gain could increase the risk of developing sleep apnea in the future. I strongly encouraged the patient to lose weight. Patient has light to moderate snoring. Snoring can be reduced by weight loss. Weight loss is best achieved with diet consult. Patient instructed to contact PCP for referral. Snoring can also be treated with an oral appliance from a dentist. Advised to check insurance coverage. In addition, an ENT evaluation can be do to see if other treatment is indicated. Patient does not drink alcohol. Patient was cautioned about risks of drowsy driving until sleepiness symptoms resolve. Patient denies drowsy driving. Sleep Study - Results Type of Sleep Study: Polysomnography (COMPLETED 03/12/23) Prior sleep studies: No Polysomnography/Home Sleep Study results: IMPRESSION: The quality of the study is good. The patient had reduced sleep efficiency due to two prolonged awakenings during the night. The sleep architecture was abnormal for mild sleep fragmentation and reduced amount of time spent in slow wave sleep (N3). Respiratory monitoring showed no significant sleep disordered breathing (AHI = 0.6) or hypoxia (kristin oxygen saturation of 92%). The patient slept adequately in supine position (supine AHI = 1.1; non-supine = 0.00). Snore was light to moderate in intensity. There was no significant periodic leg movement of sleep. Cardiac rhythm was normal sinus rhythm without significant arrhythmia. No abnormal behavior (parasomnia) observed during the night. Allergies and Home Medications Known drug allergies: Yes (as listed) Drug allergies reviewed: Yes Home medication list reviewed: Yes (no changes) Allergy and home medication list: Allergies sulfamethoxazole [From Septra] Allergy (Verified 04/01/23 10:12) Edema trimethoprim [From Septra] Allergy (Verified 04/01/23 10:12) Edema Review of Systems Review of systems same as previous: Yes (no changes) Physical Exam Vital signs obtained and entered by: JENNIFER Harrison MA Blood Pressure: 126/72 (LEFT ARM) Cuff size: regular Heart Rate: 92 O2 Saturation: 98 Height: 5 ft Weight: 180 lb 9.6 oz Body Mass Index: 35.2 BMI Classification: Obese Impression and Plan Snoring but no significant sleep disordered breathing. Patient advised that often weight loss will reduce snoring as well as apnea risk. An oral appliance can also be used for snoring. This would require a dental consultation. Patient cautioned not to use other online appliances as can cause bite issues. A list of accredited dentists in area and one local dentist who makes oral appliances is available in office as needed. Patient is advised to check if insurance will cover. An ENT consult can also be helpful to determine if any other treatment is an option. * Attempt to lose weight * Avoid alcohol consumption near bedtime * The patient is cautioned about driving until sleepiness is completely resolved. * Return as needed for follow up. Counseling Topics: Weight loss health impact Visit Type: In Office Time Spent with Patient (minutes): 10 Provider Statement: I spent 100% of the Face to Face Visit with the patient with greater than 50% spent counseling the patient and coordination of care.
[2023-04-02 13:45] VITALS: BP 126/72
== END 2023-04-02 13:04 | disposition home or self-care (01) ==
LOC: SC 13:03
PROVIDERS: ATTEND Nurse Practitioner Family
DX: R06.83 Snoring (principal); E66.9 Obesity, unspecified; Z68.35 Body mass index [BMI] 35.0-35.9, adult
CPT/HCPCS: 99212